=== PATIENT | male | born 1945 | race Caucasian/White ===

== ENCOUNTER 2017-10-07 04:53 | Inpatient (IN) ==
[2017-10-01 12:42] LABS: Appearance,Urine CLEAR; Bilirubin,Urine NEG (NEG); Color,Urine YELLOW; Glucose,Urine (UA) NEGATIVE (NEG); Leukocyte Esterase,Urine NEG /uL (NEG); Nitrate,Urine NEG (NEG); Protein,Urine NEG (NEG); Specific Gravity,Urine 1.026 (1.000-1.035); Urine Blood NEG mg/dL (<0.03); Urobilinogen,Urine NEG (NEG)
[2017-10-01 13:31] LABS: Blood Urea Nitrogen 19 mg/dl (8-23)
[2017-10-01 13:33] LABS: Basophils # (Auto) 0 K/mcL (0.0-0.3); Basophils % (Auto) 0.3 % (0.0-2.0); Eosinophils # (Auto) 0.1 K/mcL (0.0-0.7); Eosinophils % (Auto) 1.1 % (0.0-7.0); Granulocytes % (Auto) 71.6 % (38.0-78.0); Lymphocytes # (Auto) 1.5 K/mcL (1.5-4.8); Lymphocytes % (Auto) 19.7 % (15.5-49.0); Mean Cell Volume 89.9 fL (80.0-100.0); Mean Corpuscular HGB Conc 33.8 g/dL (31.0-36.0); Mean Corpuscular Hemoglobin 30.4 pg (26.0-34.0); Monocytes # (Auto) 0.5 K/mcL (0.1-0.9); Monocytes % (Auto) 7.3 % (1.0-12.0); Platelet Count 222 K/mcL (140-440); RBC 5.25 M/mcL (4.50-5.90); Red Cell Distribution Width 13.1 % (11.5-14.5)
[~2017-10-07 04:53] MED LIST: IPRATROPIUM/ALBUTEROL 3 ML AMPUL.NEB NEB PRN; SCOPOLAMINE 1 PATCH PATCH TOPICAL PRN
[2017-10-07] MEDS ORDERED: oxyCODONE 10 MG TAB.ER.12H PO SCH (06:00)
[2017-10-07] MEDS ORDERED: CELECOXIB 200 MG CAPSULE PO SCH (06:00)
[2017-10-07] MEDS ORDERED: PREGABALIN 75 MG CAPSULE PO SCH (06:00)
[2017-10-07] MEDS: ceFAZolin 1 GM VIAL IV SCH ×4 (07:20→21:32)
[2017-10-07] MEDS ORDERED: BENZOCAINE/MENTHOL 1 LOZENGE PO PRN ×2 (08:40→09:36)
[2017-10-07] MEDS ORDERED: ONDANSETRON 4 MG/2 ML VIAL IV PRN ×2 (08:40→09:36)
[2017-10-07] MEDS ORDERED: KETOROLAC 15 MG/ML VIAL IV PRN (08:40)
[2017-10-07] MEDS ORDERED: ACETAMINOPHEN 1,000 MG/100 ML BOTTLE IV ONE (08:40)
[2017-10-07] MEDS ORDERED: MEPERIDINE 25 MG/ML SYRINGE IV PRN (08:40)
[2017-10-07] MEDS ORDERED: PROMETHAZINE 25 MG/ML VIAL IV PRN (08:40)
[2017-10-07] MEDS ORDERED: fentaNYL 100 MCG/2 ML VIAL IV PRN (08:40)
[2017-10-07] MEDS ORDERED: METHOCARBAMOL 1,000 MG/10 ML VIAL IV PRN (08:40)
[2017-10-07] MEDS ORDERED: HYDROmorphone 2 MG/ML SYRINGE IV PRN (08:40)
[2017-10-07] MEDS ORDERED: IPRATROPIUM/ALBUTEROL 3 ML AMPUL.NEB NEB PRN (08:40)
[2017-10-07] MEDS ORDERED: LACTATED RINGERS 1,000 ML IV SCH (08:45)
[2017-10-07] MEDS ORDERED: BUPIVACAINE 0.5% 50 ML VIAL IJ ONE (09:26)
[2017-10-07] MEDS ORDERED: KETAMINE 10 MG/ML ML IV ONE (09:29)
[2017-10-07] MEDS ORDERED: METOPROLOL TARTRATE 5 MG/5 ML VIAL IV ONE (09:29)
[2017-10-07] MEDS ORDERED: PROPOFOL 200 MG/20 ML VIAL IV ONE (09:29)
[2017-10-07] MEDS ORDERED: fentaNYL 100 MCG/2 ML VIAL IV ONE (09:29)
[2017-10-07] MEDS ORDERED: GLYCOPYRROLATE 0.2 MG/ML VIAL IV ONE (09:29)
[2017-10-07] MEDS ORDERED: ONDANSETRON 4 MG/2 ML VIAL IV ONE (09:29)
[2017-10-07] MEDS ORDERED: LIDOCAINE HCL/PF 100 MG/5 ML SYRINGE IV ONE (09:29)
[2017-10-07] MEDS ORDERED: VERAPAMIL 2.5 MG/ML VIAL IV ONE (09:29)
[2017-10-07] MEDS ORDERED: TRANEXAMIC ACID 1,000 MG/10 ML VIAL IV ONE ×2 (09:29→09:36)
--- NOTE | 2017-10-07 09:35 | Brief Operative Note ---
Date of procedure: 10/07/17 Pre-op diagnosis: Right shoulder DJD, R ring finger trigger finger Post-op diagnosis: same Procedure: 1) R total shoulder arthroplasty with bicep tenodesis 2) R ring finger trigger release A1 vidya Grafts/Implants: Yes (Depuy CAP 48 x 18, anchor peg 48) Anesthesia: GLMA Findings: complete humeral head cartilage loss, large nodule on flexor tendon Complications: none Surgeon: Yan Li Title Processor: Russ Stafford Estimated blood loss (cc): 100 Specimens Removed/Pathology: none sent Condition: stable Disposition: PACU
[2017-10-07] MEDS ORDERED: KETOROLAC 30 MG/ML VIAL IV PRN (09:36)
[2017-10-07] MEDS ORDERED: POLYETHYLENE GLYCOL 3350 17 GM PACKET PO PRN (09:36)
[2017-10-07] MEDS ORDERED: METHOCARBAMOL 750 MG TABLET PO PRN (09:36)
[2017-10-07] MEDS ORDERED: BISACODYL 10 MG SUPP.RECT PR PRN (09:36)
[2017-10-07] MEDS ORDERED: MAGNESIUM HYDROXIDE 30 ML ORAL.SUSP PO PRN (09:36)
[2017-10-07] MEDS ORDERED: FLEETS ADULT ENEMA PR PRN (09:36)
[2017-10-07] MEDS ORDERED: PROPRANOLOL 10 MG TABLET PO PRN (09:40)
--- NOTE | 2017-10-07 10:11 | XRay Report ---
CLINICAL INFORMATION: Postop total shoulder prostheses COMPARISON: None. FINDINGS: Shoulder prostheses is anatomically aligned. No osseous abnormality. Periarticular gas and soft tissue is seen - as expected IMPRESSION: Negative Interpreted and Authenticated by: Teto Pagan 10/07/17
--- NOTE | 2017-10-07 10:33 | Operative Note ---
DATE OF OPERATION: 10/07/2017 PREOPERATIVE DIAGNOSES: 1. Right shoulder degenerative joint disease with biceps SLAP tear. 2. Right ring finger trigger finger. POSTOPERATIVE DIAGNOSES: 1. Right shoulder degenerative joint disease with biceps SLAP tear. 2. Right ring finger trigger finger. PROCEDURE PERFORMED: 1. Right total shoulder arthroplasty using the DePuy Cap 48 x 18 and a 48 [place] Peg Glenoid with biceps tenodesis. 2. Right ring finger A1 vidya trigger release. SURGEON: Yan Li M.D. SODA DRIER FEEDER: Eric Stafford PA-C. ANESTHESIA: General. DRAINS: None. SPECIMENS: None. COMPLICATIONS: None. BLOOD LOSS: 100 mL. POSTOPERATIVE CONDITION: Stable. INDICATIONS FOR SURGERY: This is a 72-year-old male who has had progressive worsening right shoulder pain. MRI showed a SLAP tear as well as significant humeral head chondromalacia. He also had a trigger digit of the ring finger. FINDINGS AT SURGERY: He did have near complete humeral head cartilage loss, and there was a large nodule on the flexor tendon. PROCEDURE IN DETAIL: The patient had been seen preoperatively. Informed consent had been obtained after discussion of risks and benefits of surgery. Risks including, but not limited to, bleeding, possibly requiring transfusion; infection, possibly requiring implant removal and prolonged IV antibiotics; injury to nerves, blood vessels, and other surrounding structures; anesthetic risks; incomplete or no resolution of symptoms; stiffness; pain; dislocation; fracture; possible need of further surgery. He understood these risks and wished to proceed. Correct operative site was marked and then patient was taken to the operating room and general anesthesia induced. He was carefully positioned in the beach chair position and pressure points were carefully padded. Right shoulder and upper extremity were then carefully prepped and draped in normal sterile fashion, and a time-out was performed verifying patient name, operative site, and plan. Ioban was placed on the axilla and all skin surfaces were covered, and then a standard deltopectoral incision was made with a scalpel through skin and subcutaneous tissue. Hemostasis was obtained with Bovie cautery. Irrisept was irrigated and then we bluntly dissected down onto the cephalic vein. This was dissected laterally with the deltoid and was carefully kept intact throughout the procedure. Blunt finger dissection was then taken down through the deltopectoral interval and the subdeltoid space developed. A Sancho deltoid retractor was placed. We then palpated the biceps tendon exiting from the pec, and we opened this along its course with a scalpel. A large amount of joint fluid egress, there was also significant tendonopathy. We amputated the biceps off the superior glenoid and then a large curved osteotome was used to perform a lesser tuberosity osteotomy. The subscapularis was detached and then a traction stitch was placed around the tuberosity. We then went ahead and exposed the humeral head, dislocating it out anteriorly and noted the complete cartilage loss. Limited osteophytes were noted. These were removed and then the head was subluxed posteriorly. We excised the labrum and biceps and then carefully released capsule around the glenoid, carefully keeping the Bovie right on bone. Once we had adequate exposure, we identified the guide pin position and drilled this bicortically. We then reamed the glenoid until all cartilage was removed. We then drilled the central peg. The peripheral peg drill guide was then pinned into place, and we drilled our three peripheral pegs. We then irrigated with Irrisept. We opened a 48 glenoid. DBX was placed in the central flutes and then antibiotic cement was mixed, and we cemented the three peripheral holes. We then impacted the implant and held it until cement had fully hardened. We then re-exposed the head, placed the cap guide to place our guide pin, and then reamed with a 48 x 18 reamer. We then keel punched and opened a 48 x 18 implant. We irrigated with Irrisept. After a minute we pulse lavaged and then impacted the implant. We reduced the shoulder. It subluxed 50%. We then went ahead and made drill holes in the bicipital groove and used #2 FiberWire [id number] over the lesser tuberosity osteotomy. We also used this to close the rotator interval proximally and then performed a soft tissue tenodesis with a FiberWire as well. The proximal biceps was amputated. We irrigated with saline and then closed the deltopectoral interval with a running #1 Vicryl. We then used 2-0 Monocryl for subcutaneous and fiona for skin. Xeroform was placed, and then we placed a towel over that. We then split our drapes distally and exposed the hand. Esmarch was used to exsanguinate the extremity and then a wrist tourniquet was made by overwrapping the Esmarch. We then made an incision over the distal palmar crease with a 15 blade scalpel. We dissected down onto the flexor tendon and then visualized the proximal edge of the A1 vidya. There was also a large flexor nodule there. We then used a 15 blade and released the A1 vidya slightly on the radial side its full extent. We then flexed and extended the tendon and made sure there was no triggering. We then irrigated with saline. Nylon stitch was used to close skin. Local anesthetic was injected. Xeroform and sterile dressing were applied. The patient was then awakened, extubated, and transferred to recovery in stable condition. [email or web address] Job ID: [id number] Doc ID: [id number] Yan Li MD
[2017-10-07] MEDS: HYDROmorphone 2 MG/ML SYRINGE IV PRN ×3 (11:09→13:30)
[2017-10-07] MEDS: 0.9 % SODIUM CHLORIDE 1,000 ML IV SCH ×2 (11:15→21:56)
[2017-10-07] MEDS: 0.9 % SODIUM CHLORIDE 10 ML SYRINGE IV SCH ×2 (14:23→21:56)
--- NOTE | 2017-10-07 15:16 | Discharge Summary ---
Providers - Providers Patient information: Note initiated : 10/07/17 at 3:14 pm Service Date, if different from initiated Date: [] Patient: Perfecto De Los Santos 72 y/o M admitted on 10/07/17 for Right Total Shoulder Arthroplasty with Bicep . Chief Complaint: [] Discharge date: 10/08/17 Hospitalization Hospital course: Pt was admitted for R TSA. He underwent the procedure on the day of admission and was discharged on post-op day 1. He will f/u at [facility] in 2 weeks. He was provided appropriate pain meds and out-patient PT. Discharge diagnosis: R Shoulder osetoarthrosis Exam - Exam Clean and dry: Yes Weight bearing status: none Ortho Discharge - TSA - Patient Instructions Diet: Regular Diet Activity: non weight bearing Total Shoulder Protocol: Leave immobilizer in place except for bathing and ROM. Abduction pillow. Continue to wear sling until seen by physician. Codman Pendulum : These exercises use momentum produced by your body to move your shoulder joint. Bend your knees and shift your weight to your front leg, then back, allowing your arm to swing in the same directions. Using the same technique, alternately shift your weight between your right and left legs, allowing your arm to swing from side to side. These exercises are also performed in counterclockwise and clockwise circular motions. Typically these exercises are performed several times per day, for a set number repetitions or minutes, such as 20 times in a row or 5 minutes at a time. Dressing Care: May shower in 2 days - Follow Up Plan Disposition: Home, Self-Care Prognosis: Good Rehab Potential: Good Overall status at discharge: patient is progressing back to baseline - Orders For Discharge Prescriptions: HYDROcodone/APAP 10/325MG [Outing 10/325Mg] 1 - 2 tab PO Q4HP PRN #90 tab PRN Reason: Pain Level 3-6 traMADol [Ultram] 50 - 100 mg PO Q4-6HP PRN #90 tab PRN Reason: Pain Additional Discharge Orders: Physical Therapy at Discharge - TSA Location: Determined By Patient Pending Studies Resuscitation Status Full Code Diet Regular Diet Start ThuOct 07 09 Cefazolin Sodium (Ancef) 2 gm IV PREOP KEEGAN Stop: 10/07/17 17:00 Last Admin: 10/07/17 07:20 Dose: 2 gm Cefazolin Sodium (Ancef) 2 gm IV Q8H KEEGAN Stop: 10/07/17 22:01 Last Admin: 10/07/17 14:22 Dose: 2 gm Celecoxib (Celebrex) 200 mg PO PREOP KEEGAN Stop: 10/07/17 17:00 Last Admin: 10/07/17 06:49 Dose: 200 mg Hydromorphone HCl (Dilaudid) 0 mg IV Q2HP PRN PRN Reason: PAIN LEVEL > 6 Last Admin: 10/07/17 13:30 Dose: 1 mg Admin: 10/07/17 11:31 Dose: 1 mg Admin: 10/07/17 11:09 Dose: 1 mg Sodium Chloride (Sodium Chloride 0.9%) 1,000 mls @ 100 mls/hr IV .Q10H [facility] Last Admin: 10/07/17 11:15 Dose: 100 mls/hr Oxycodone HCl (Oxycontin) 10 mg PO PREOP KEEGAN Stop: 10/07/17 17:00 Last Admin: 10/07/17 06:49 Dose: 10 mg Pregabalin (Lyrica) 75 mg PO PREOP KEEGAN Stop: 10/07/17 17:00 Last Admin: 10/07/17 06:49 Dose: 75 mg Sodium Chloride (Saline Flush) 10 ml IV Q8 KEEGAN Last Admin: 10/07/17 14:23 Dose: Not Given
[2017-10-07] MEDS ORDERED: SENNOSIDES 1 TABLET PO SCH (21:00)
[2017-10-07] MEDS: DOCUSATE SODIUM 100 MG CAPSULE PO SCH (21:31)
[2017-10-07] MEDS: HYDROcodone/APAP 10/325MG TABLET PO PRN (21:31)
[2017-10-08] MEDS: HYDROcodone/APAP 10/325MG TABLET PO PRN ×2 (01:01→05:10)
--- NOTE | 2017-10-08 07:54 | Orthopedic Progress Note ---
Orthopedics - Auxillary Note - Subjective Patient Information: Note initiated : 10/08/17 at 7:53 am Service Date, if different from initiated Date: [] Patient: Perfecto De Los Santos 72 y/o M admitted on 10/07/17 for Right Total Shoulder Arthroplasty with Bicep . Chief Complaint: no c/o. bandages c/d/i nvi-distal Vital Signs Temp Pulse Pulse Resp BP BP BP 10/08/17 02:54 98.8 F 67 18 152/82 10/08/17 00:00 98.4 F 64 18 145/83 10/07/17 20:00 98.2 F 72 20 143/87 10/07/17 19:22 10/07/17 13:13 56 L 16 135/87 10/07/17 12:55 66 16 149/87 10/07/17 12:40 59 L 16 157/92 10/07/17 12:25 61 16 139/65 10/07/17 12:10 63 16 131/86 10/07/17 11:40 53 L 16 135/93 10/07/17 11:25 59 L 16 144/90 10/07/17 11:10 52 L 16 142/81 10/07/17 10:55 50 L 16 127/85 10/07/17 10:35 97.7 F 54 L 16 111/74 10/07/17 10:20 96.7 F L 59 L 15 90/60 10/07/17 10:15 53 L 13 84/57 10/07/17 10:10 64 18 101/66 10/07/17 10:05 65 18 120/76 10/07/17 10:00 60 15 139/88 10/07/17 09:55 62 13 138/85 10/07/17 09:50 68 10 L 123/80 10/07/17 09:45 69 10 L 101/70 10/07/17 09:40 96.3 F L 73 10 L 98/65 10/07/17 08:00 97.5 F 58 L 16 142/91 Pulse Ox 10/08/17 02:54 95 10/08/17 00:00 93 10/07/17 20:00 94 10/07/17 19:22 98 10/07/17 13:13 98 10/07/17 12:55 100 10/07/17 12:40 99 10/07/17 12:25 99 10/07/17 12:10 97 10/07/17 11:40 98 10/07/17 11:25 98 10/07/17 11:10 99 10/07/17 10:55 99 10/07/17 10:35 98 10/07/17 10:20 99 10/07/17 10:15 97 10/07/17 10:10 99 10/07/17 10:05 100 10/07/17 10:00 100 10/07/17 09:55 97 10/07/17 09:50 97 10/07/17 09:45 98 10/07/17 09:40 98 10/07/17 08:00 100 Intake and Output 10/07/17 10/08/17 10/08/17 21:59 05:59 13:59 Intake Total 400 / 400 1200 / 1200 Output Total 600 / 600 Balance 400 / 400 600 / 600 Intake: Oral 400 / 400 1200 / 1200 Output: Void Amount 600 / 600 Other: Meal Dinner applesauce Percent of Meal Consumed 100% 100% Feeding Ability Independent Independent # Voids 1 Weight 199 lb 8 oz s/p R TSA-stable mobilize with PT discharge pain meds switch from [place] to Tramadol
[2017-10-08] MEDS: DOCUSATE SODIUM 100 MG CAPSULE PO SCH (08:09)
[2017-10-08] MEDS: 0.9 % SODIUM CHLORIDE 10 ML SYRINGE IV SCH (08:10)
[2017-10-08] MEDS ORDERED: ASPIRIN 81 MG TAB.CHEW PO SCH (09:00)
[2017-10-08] MEDS ORDERED: PNEUMOCOCCAL 23-VAL P-SAC VAC 0.5 ML VIAL IM ONE (10:00)
== END 2017-10-08 09:30 | disposition home or self-care (01) | DRG 483 ==
LOC: ICU 04:53
PROVIDERS: ADMIT Orthopaedic Surgery; ATTEND Orthopaedic Surgery